=== PATIENT | female | born 1945 | race Caucasian/White ===

== ENCOUNTER → 2024-11-08 09:06 | Outpatient (REF) | payer MEDICARE, SELFPAY | LOC: HWRCS 09:06 | PROVIDERS: ATTENDING PHYSICIAN Nurse Practitioner; FAMILY PHYSICIAN Nurse Practitioner Family | DX: I10 Essential (primary) hypertension (principal) | CPT/HCPCS: 93306 ==

== ENCOUNTER → 2025-06-05 10:04 | Outpatient (REF) | payer MEDICARE, SELFPAY | LOC: PAVMRI 10:04 | PROVIDERS: ATTENDING PHYSICIAN Specialist; FAMILY PHYSICIAN Student in an Organized Health Care Education/Training Program | DX: G93.41 Metabolic encephalopathy (principal) | CPT/HCPCS: 70553; A9575 ==